=== PATIENT | female | born 1940 | race Caucasian/White ===

== ENCOUNTER 2016-09-29 08:37 | Outpatient (CLI) | payer MEDICARE ==
[2016-09-29] MEDS ORDERED: Iopamidol 370 76% 100 ML VIAL ONE (09:54)
--- NOTE | 2016-09-29 13:46 | CT ---
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 COMPARISON: Prior CT dated 05/12/2016. FINDINGS: ABDOMEN: The lung bases are clear. Post surgical change and partial hepatic resection is similar. 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 The l eft adrenal gland is normal appearing. The gallbladder is surgically absent. The pancreas is withi n normal limits. The spleen is surgically absent. No focal renal lesion is evident. No free fluid or pathologically enlarged lymph nodes are seen within the upper abdomen. Anastomotic suture line within the lower central pelvis is similar appearing. There is a mild amoun t of retained stool within the residual colon. The anastomotic suture line within the right stewart-ab domen is within normal limits. The small bowel is of normal caliber. No free fluid is evident. OSSEOUS STRUCTURES: There is diffuse osteopenia. There are scattered degenerative and osteophyte c hanges. No destructive osteolytic or osteoblastic lesion identified. IMPRESSION: 1. Findings consistent with response to therapy. The metastatic lesion in the right adrenal gland has decreased in size. No new evidence of metastatic disease within the abdomen or pelvis. 2. Stable postoperative change, as above. POS: [facility]
== END 2016-09-29 08:38 | disposition home or self-care (01) ==
LOC: MADCT 08:37
PROVIDERS: ATTEND Internal Medicine Hematology & Oncology
DX: C78.2 Secondary malignant neoplasm of pleura (principal)
CPT/HCPCS: 36415; 74177; 82565

== ENCOUNTER 2016-10-03 07:57 | Emergency (ER) | payer MEDICARE | END 2016-10-03 08:37 | disposition home or self-care (01) | LOC: MADERS 07:57 | DX: M79.81 Nontraumatic hematoma of soft tissue (principal) | CPT/HCPCS: 99282 ==

== ENCOUNTER 2017-03-10 07:47 | Outpatient (CLI) | payer MEDICARE ==
[2017-03-10 08:16] LABS: #Basophils 0.2 thou/uL (0.0-0.2); #Eosinphils 0.2 thou/uL (0.0-0.7); #Lymphocytes 2.5 thou/uL (1.20-3.40); #Monocytes 0.9 thou/uL (0.11-0.59); #Neutrophils 5.1 thou/uL (1.40-6.50); %Basophils 1.9 % (0.0-1.0); %Eosinophils 2.8 % (0.0-10.0); %Lymphocytes 28.2 % (21.0-51.0); %Monocytes 10.2 % (0.0-10.0); Hemoglobin 14.1 g/dL (12.0-16.0); Mean Corpuscular HGB CONC 32.5 g/dL (32.0-36.0); Mean Corpuscular Hemoglobin 32.5 pg (27.0-31.0); Mean Platelet Volume 6.3 fL (7.4-10.4); Platelet Count 362 thou/uL (130-400); RBC Distribution Width 12.3 % (11.5-14.5); Red Blood Cell (RBC) Count 4.33 mill/uL (4.20-5.40); White Blood Cell (WBC) Count 8.9 thou/uL (4.8-10.8)
[2017-03-10 09:12] LABS: Anion Gap 12 mmol/L (10-20); BUN (Urea Nitrogen) 14 mg/dL (9.8-20.1); Calc. Creatinine Clearance 0 mL/min (70-130); Calcium 11.8 mg/dL (7.8-10.44); Carbon Dioxide 29 mmol/L (23-31); Cardiac Risk 4.3 (Less than 4.5); Chloride 104 mmol/L (98-107); Cholesterol 172 mg/dl (< 200 Desired); Estimated GFR-MDRD 63; Glucose 107 mg/dL (83-110); HDL Cholesterol 40 mg/dL (>60 Neg Risk); LDL Cholesterol, Calculated 117 mg/dL; Potassium 4.3 mmol/L (3.5-5.1); Sodium 141 mmol/L (136-145); Triglycerides 73 mg/dL (Less than 150)
--- NOTE | 2017-03-10 10:00 | RAD ---
TWO VIEWS CHEST: 03/10/2017 PROVIDED CLINICAL HISTORY: Colon cancer. COMPARISON: 07/25/2015 FINDINGS: The cardiac and mediastinal silhouette is unchanged in appearance. Vascular calcification involves the aortic arch. A right-sided implanted port is again seen in a similar position. No focal consol idation, pleural fluid, or pneumothorax apparent. There are questionable nodular densities overlyin g the left mid lung zone on the frontal view and the anterior mediastinum on the lateral view, incom pletely characterized on the basis of this study. IMPRESSION: Possible pulmonary nodules. Correlation with CT of the chest is recommended. CODE T POS: OFF
== END 2017-03-10 07:48 | disposition home or self-care (01) ==
LOC: MADLABBHPM 07:47
PROVIDERS: ATTEND Family Medicine
DX: C18.7 Malignant neoplasm of sigmoid colon (principal); E11.9 Type 2 diabetes mellitus without complications; E78.5 Hyperlipidemia, unspecified; E21.3 Hyperparathyroidism, unspecified
CPT/HCPCS: 36415; 71020; 80048; 80061; 84443; 85025

== ENCOUNTER 2017-04-23 11:26 | Emergency (ER) | payer MEDICARE ==
[~2017-04-23 11:26] MED LIST: Dextrose 5 % And 0.9 % NaCl 1000 ml Bag ONE; Sodium Chloride 0.9% 100 ML BAG ONE
[2017-04-23 12:36] LABS: #Basophils 0.2 thou/uL (0.0-0.2); #Eosinphils 0.1 thou/uL (0.0-0.7); #Lymphocytes 1.5 thou/uL (1.20-3.40); #Monocytes 1.3 thou/uL (0.11-0.59); #Neutrophils 9.8 thou/uL (1.40-6.50); %Basophils 1.4 % (0.0-1.0); %Lymphocytes 11.4 % (21.0-51.0); %Monocytes 9.9 % (0.0-10.0); %Neutrophils 76.3 % (42.0-75.0); Hemoglobin 13.5 g/dL (12.0-16.0); Mean Corpuscular HGB CONC 33.5 g/dL (32.0-36.0); Mean Corpuscular Hemoglobin 32.5 pg (27.0-31.0); Mean Platelet Volume 7.5 fL (7.4-10.4); Platelet Count 278 thou/uL (130-400); Red Blood Cell (RBC) Count 4.16 mill/uL (4.20-5.40); White Blood Cell (WBC) Count 12.9 thou/uL (4.8-10.8)
[2017-04-23 12:48] LABS: CRP (Inflammatory) 4.98 mg/dL (= or < 0.5)
[2017-04-23 12:50] LABS: ALT (SGPT) 19 U/L (8-55); AST (SGOT) 46 U/L (5-34); Albumin 3.8 g/dL (3.4-4.8); Alkaline Phosphatase 160 U/L (40-150); Anion Gap 18 mmol/L (10-20); BUN (Urea Nitrogen) 20 mg/dL (9.8-20.1); Bilirubin, Total 0.9 mg/dL (0.2-1.2); Calc. Creatinine Clearance 0 mL/min (70-130); Calcium 11.6 mg/dL (7.8-10.44); Carbon Dioxide 25 mmol/L (23-31); Chloride 101 mmol/L (98-107); Estimated GFR-MDRD 59; Globulin 3.7 g/dL (2.4-3.5); Glucose 170 mg/dL (83-110); Potassium 4.9 mmol/L (3.5-5.1); Protein, Total 7.5 g/dL (6.0-8.3); Sodium 139 mmol/L (136-145)
[2017-04-23 13:12] LABS: Bilirubin Negative (Negative); Blood, Urine Trace (Negative); Clarity Slightly Cloudy (Clear); Glucose, Urine (Dipstick) Negative (Negative); Leukocyte Negative (Negative); Nitrite Negative (Negative); Protein, Urine (Dipstick) 30 mg/dL (Neg-Trace); Specific Gravity, Urine 1.015 (1.005-1.030); Urobilinogen 0.2 mg/dL (0.2-1.0)
[2017-04-23] MEDS ORDERED: Ondansetron HCl/PF 4 MG/2 ML Vial ONE ×2 (13:15→14:01)
[2017-04-23] MEDS ORDERED: Piperacillin/Tazobactam 3.375 GM VIAL ONE (13:15)
--- NOTE | 2017-04-23 13:26 | RAD ---
ACUT6E ABDOMINAL SERIES: Date: 04/23/17 PROVIDED CLINICAL HISTORY: Abdominal pain. FINDINGS: Comparison made with the study dated 03/10/17. Cardiac and mediastinal silhouette is unchanged in appearance. Several noncalcified pulmonary nodules are noted. Vascular calcification involves the aortic arch. Right subclavian implanted port again se en. No pleural fluid or pneumothorax apparent. Supine and upright abdominal radiographs demonstrate a nonspecific bowel gas pattern. There is no thomas dence for pneumoperitoneum. IMPRESSION: 1. Noncalcified pulmonary nodules, which may reflect metastatic disease. Consider CT correlation. 2. Nonspecific bowel gas pattern. CODE T. POS: [facility]
[2017-04-23 13:27] LABS: Bacteria/HPF Rare-Few HPF (None Seen); RBC/HPF 0-3 HPF (0-3); WBC/HPF 0-3 HPF (0-3)
== END 2017-04-23 14:18 | disposition short-term general hospital (02) ==
LOC: MADERS 11:26
DX: K56.609 Unspecified intestinal obstruction, unspecified as to partial versus complete obstruction (principal); D72.829 Elevated white blood cell count, unspecified; C78.5 Secondary malignant neoplasm of large intestine and rectum; Z79.01 Long term (current) use of anticoagulants; Z85.05 Personal history of malignant neoplasm of liver
CPT/HCPCS: 51701; 74022; 80053; 81003; 81015; 82150; 83605; 85025; 86140; 87040; 87086; 96365; 96375; A4353; J2405; J2543; J7042; J7050